=== PATIENT | female | born 1995 | race Two or more races ===

== ENCOUNTER 2021-07-30 14:11 | Outpatient (CLI) | payer OTHER | END 2021-07-30 15:23 | disposition home or self-care (01) | LOC: PRENATAL 14:11 | PROVIDERS: ATTEND Obstetrics & Gynecology Maternal & Fetal Medicine | DX: O35.0XX1 Maternal care for (suspected) central nervous system malformation in fetus, fetus 1 (principal); O35.3XX1 Maternal care for (suspected) damage to fetus from viral disease in mother, fetus 1; O98.512 Other viral diseases complicating pregnancy, second trimester; O99.891 Other specified diseases and conditions complicating pregnancy; Z36.89 Encounter for other specified antenatal screening; Z3A.21 21 weeks gestation of pregnancy ==

== ENCOUNTER 2021-10-08 11:37 | Outpatient (CLI) | payer OTHER | END 2021-10-08 12:16 | disposition home or self-care (01) | LOC: PRENATAL 11:37 | PROVIDERS: ATTEND Obstetrics & Gynecology Maternal & Fetal Medicine | DX: O26.849 Uterine size-date discrepancy, unspecified trimester (principal); O35.0XX0 Maternal care for (suspected) central nervous system malformation in fetus, not applicable or unspecified; O99.891 Other specified diseases and conditions complicating pregnancy; Z3A.32 32 weeks gestation of pregnancy ==

== ENCOUNTER 2021-10-19 22:00 | Outpatient (CLI) | payer OTHER ==
[2021-10-19] MEDS ORDERED: FOLIC ACID0.8 M1 PO (22:38)
[2021-10-19] MEDS ORDERED: PRENATAL TABLE1 EAC1 PO (22:38)
[2021-10-19] MEDS ORDERED: VENOFER100 MG/51 IM (22:39)
== END 2021-10-20 14:31 | disposition home or self-care (01) ==
LOC: OBS/DEL 22:00
PROVIDERS: ATTEND Obstetrics & Gynecology
DX: O99.513 Diseases of the respiratory system complicating pregnancy, third trimester (principal); Z3A.33 33 weeks gestation of pregnancy; J06.9 Acute upper respiratory infection, unspecified; A49.3 Mycoplasma infection, unspecified site; Z20.822 Contact with and (suspected) exposure to COVID-19

== ENCOUNTER 2021-11-17 13:10 | Inpatient (IN) | payer OTHER ==
[~2021-11-17] VITALS: Ht 157.5 cm; Wt 62.1 kg
[~2021-11-17 13:10] MED LIST: FOLIC ACID0.8 M1 PO; PRENATAL TABLE1 EAC1 PO; VENOFER100 MG/51 IM
== END 2021-12-02 13:25 | disposition home or self-care (01) | DRG 807 ==
LOC: OB/GYN 11-29 20:46 → LDR 11-29 20:46 → OB/GYN 11-30 16:58 → LDR 12-01 13:30 → OB/GYN 12-02 13:25
PROVIDERS: ADMIT Obstetrics & Gynecology; ATTEND Obstetrics & Gynecology
PROC: 4A1HXCZ Monitoring of Products of Conception, Cardiac Rate, External Approach (ICD-10-PCS; 2021-11-29)
PROC: 10E0XZZ Delivery of Products of Conception, External Approach (ICD-10-PCS; principal; 2021-11-30)
PROC: 0KQM0ZZ Repair Perineum Muscle, Open Approach (ICD-10-PCS; 2021-11-30)
DX: O70.1 Second degree perineal laceration during delivery (principal); Z37.0 Single live birth; Z3A.39 39 weeks gestation of pregnancy; Z20.822 Contact with and (suspected) exposure to COVID-19; D56.3 Thalassemia minor; O26.893 Other specified pregnancy related conditions, third trimester

== ENCOUNTER 2021-11-26 06:13 | Outpatient (CLI) | payer OTHER | END 2021-11-27 13:26 | disposition home or self-care (01) | LOC: OBS/DEL 06:13 | PROVIDERS: ATTEND Obstetrics & Gynecology | DX: O47.1 False labor at or after 37 completed weeks of gestation (principal); Z3A.39 39 weeks gestation of pregnancy; Z20.822 Contact with and (suspected) exposure to COVID-19 ==